=== PATIENT | male | born 2000 | race African-American/Black ===

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

== ENCOUNTER 2022-08-01 18:23 | Emergency (ER) | payer BC, OTHER ==
[2022-08-01 18:34] VITALS: BP 139/67; PULSE 92; RESP 18; TEMP 98; BMI 26.9
[2022-08-01 19:58] LABS: BASO % 0.5 % (0-2.0); EOS % 1.6 % (0-4.5); HEMATOCRIT 43.6 % (35.4-49); HEMOGLOBIN 14.7 GM/dL (11.7-16.9); LYMPH % 36.8 % (8-40); MCH 26.5 pg (25.7-33.7); MCHC 33.7 g/dl (32.0-35.9); MEAN CELL VOLUME 78.5 fl (80-96); MEAN PLT VOLUME 8.2 fl (7.5-11.1); MONO % 6.1 % (3.8-10.2); PLATELET COUNT 281 10^3/uL (134-434); RBC 5.55 M/mm3 (4.00-5.60); RDW 14.1 % (11.9-15.9); WHITE BLOOD COUNT 9.1 K/mm3 (4.0-10.0)
[2022-08-01 19:59] LABS: URINE APPEARANCE CLEAR; URINE BILIRUBIN NEGATIVE (NEGATIVE); URINE COLOR YELLOW; URINE GLUCOSE (UA) NEGATIVE (NEGATIVE); URINE KETONE TRACE (NEGATIVE); URINE LEUK ESTERASE NEGATIVE (NEGATIVE); URINE NITRITE NEGATIVE (NEGATIVE); URINE PROTEIN TRACE (NEGATIVE)
[2022-08-01 20:18] LABS: ALBUMIN 4.6 g/dl (3.4-5.0); BLOOD UREA NITROGEN 18.4 mg/dL (7-18); CALCIUM 9.6 mg/dL (8.5-10.1)
[2022-08-01 20:19] LABS: MAGNESIUM 1.7 mg/dL (1.8-2.4)
[2022-08-01 20:22] LABS: CREATININE 0.9 mg/dL (0.55-1.3)
[2022-08-01 20:23] LABS: BILIRUBIN,TOTAL 0.5 mg/dL (0.2-1); TOT PROT 7.9 g/dl (6.4-8.2)
== END 2022-08-01 20:58 | disposition home or self-care (01) ==
LOC: JERFT 18:23
DX: R42 Dizziness and giddiness (principal)
CPT/HCPCS: 36415; 80053; 81003; 82306; 82607; 83036; 83735; 84443; 85025; 86780; 93005; 93010; 99284-25